=== PATIENT | male | born 1940 | race Caucasian/White ===

== ENCOUNTER 2017-10-18 01:12 | Observation (INO) | payer OTHER ==
[~2017-10-18] VITALS: Ht 172.7 cm; Wt 80.2 kg
[2017-10-18 01:25] LABS: BASOPHILS ABSOLUTE AUTO 0.02 K/mm3 (0.00-0.23); BASOPHILS PERCENT AUTO 0 % (0-2); EOSINOPHILS ABSOLUTE AUTO 0.11 K/mm3 (0.00-0.68); EOSINOPHILS PERCENT AUTO 1 % (0-6); Hematocrit 38.3 % (37.0-53.0); Hemoglobin 12.9 g/dL (13.5-17.5); IMMATURE GRAN ABSOLUTE AUTO 0.03 K/mm3 (0.00-0.10); IMMATURE GRAN PERCENT AUTO 0 % (0-1); LYMPHOCYTES ABSOLUTE AUTO 3.66 K/mm3 (0.84-5.20); LYMPHOCYTES PERCENT AUTO 33 % (21-46); MONOCYTES ABSOLUTE AUTO 0.86 K/mm3 (0.16-1.47); MONOCYTES PERCENT AUTO 8 % (4-13); Mean Corpuscular HGB 33.5 pg (26.0-34.0); Mean Corpuscular HGB Conc 33.7 g/dL (31.5-36.5); Mean Corpuscular Volume 100 fL (80-100); Mean Platelet Volume 10.4 fL (9.1-12.4); NEUTROPHILS ABSOLUTE AUTO 6.52 K/mm3 (1.96-9.15); NEUTROPHILS PERCENT AUTO 58 % (41-73); Platelet Count 128 K/mm3 (150-400); RDW Coefficient Variation 13.3 % (11.7-14.2); RDW Standard Deviation 49.1 fL (35.1-46.3); Red Blood Cell Count 3.85 M/mm3 (4.30-5.90)
[2017-10-18 01:48] LABS: Alanine Aminotransfer (ALT/SGP 38 U/L (12-78); Albumin, Blood 3.2 g/dL (3.4-5.0); Albumin/Globulin Ratio 1.1 (0.8-1.8); Alk Phos 108 U/L (50-136); Anion Gap 12 mmol/L (6-16); Aspartate Aminotrans (AST/SGOT 50 U/L (12-37); Bilirubin, Total 1.1 mg/dL (0.1-1.0); Blood Urea Nitrogen 15 mg/dL (8-24); Bun/Creatinine Ratio 18.7 (12.0-20.0); CO2, Blood 23 mmol/L (21-32); Calcium, Blood 8.3 mg/dL (8.5-10.1); Chloride, Blood 101 mmol/L (98-108); Globulin, Blood 2.8 g/dL (2.2-4.0); Glomerular Filtration Rate >60 (60-); Glucose, Blood 149 mg/dL (70-99); Potassium, Blood 3.4 mmol/L (3.5-5.5); Sodium, Blood 136 mmol/L (136-145)
[2017-10-18 01:57] LABS: Digoxin (Lanoxin) 0.42 ug/mL (0.80-2.00)
[2017-10-18] MEDS ORDERED: ISOMON20 PO ×2 (02:19)
[2017-10-18] MEDS ORDERED: LOSA25 PO (02:22)
[2017-10-18] MEDS ORDERED: METO50ER PO (02:22)
[2017-10-18] MEDS ORDERED: TAMS.4ER PO (02:23)
[2017-10-18] MEDS ORDERED: SPIR25 PO ×2 (02:23)
[2017-10-18] MEDS ORDERED: WARF2.5 PO (02:24)
[2017-10-18] MEDS ORDERED: TRAM50 PO (02:24)
[2017-10-18] MEDS ORDERED: TRAZ100 PO (02:24)
[2017-10-18] MEDS ORDERED: Acetaminophen-1 EAC1 PO (02:25)
[2017-10-18] MEDS ORDERED: CLOP75 PO (02:26)
[2017-10-18] MEDS ORDERED: ATOR80 PO (02:26)
[2017-10-18] MEDS ORDERED: LANOXIN125 MCG PO (02:26)
[2017-10-18 05:36] LABS: International Normalized Ratio 2.29; Prothrombin Time Results 24.4 Sec (9.7-11.5)
== END 2017-10-18 17:50 | disposition home or self-care (01) ==
LOC: ER 01:12 → ICUW 01:13
PROVIDERS: Emergency Medicine; Internal Medicine
DX: G93.41 Metabolic encephalopathy (principal); I95.9 Hypotension, unspecified; I25.10 Atherosclerotic heart disease of native coronary artery without angina pectoris; I25.2 Old myocardial infarction; I48.2 Chronic atrial fibrillation; I10 Essential (primary) hypertension; R79.89 Other specified abnormal findings of blood chemistry; E78.5 Hyperlipidemia, unspecified; J44.9 Chronic obstructive pulmonary disease, unspecified; Z86.010 Personal history of colon polyps; Z95.5 Presence of coronary angioplasty implant and graft; Z87.891 Personal history of nicotine dependence; Z88.8 Allergy status to other drugs, medicaments and biological substances; Z79.899 Other long term (current) drug therapy; Z79.01 Long term (current) use of anticoagulants
CPT/HCPCS: 36415; 70450; 71045; 80053; 80162; 83880; 84484; 85025; 85610; 93005; 93010; 96361; 96365; 96366; 96374; 99285; G0378; J2250; J3480; J7030; J7060

== ENCOUNTER 2017-10-20 02:54 | Observation (INO) | payer OTHER ==
[~2017-10-20] VITALS: Ht 165.1 cm; Wt 78.1 kg
[~2017-10-20 02:54] MED LIST: ATOR80 PO; Acetaminophen-1 EAC1 PO; CLOP75 PO; ISOMON20 PO; LANOXIN125 MCG PO; LOSA25 PO; METO50ER PO; SPIR25 PO; TAMS.4ER PO; TRAM50 PO; TRAZ100 PO; WARF2.5 PO
[2017-10-20 03:21] LABS: BASOPHILS ABSOLUTE AUTO 0.01 K/mm3 (0.00-0.23); BASOPHILS PERCENT AUTO 0 % (0-2); EOSINOPHILS ABSOLUTE AUTO 0.04 K/mm3 (0.00-0.68); EOSINOPHILS PERCENT AUTO 1 % (0-6); Hematocrit 41.2 % (37.0-53.0); IMMATURE GRAN ABSOLUTE AUTO 0.03 K/mm3 (0.00-0.10); IMMATURE GRAN PERCENT AUTO 0 % (0-1); LYMPHOCYTES ABSOLUTE AUTO 1.26 K/mm3 (0.84-5.20); LYMPHOCYTES PERCENT AUTO 15 % (21-46); MONOCYTES ABSOLUTE AUTO 0.73 K/mm3 (0.16-1.47); MONOCYTES PERCENT AUTO 9 % (4-13); Mean Corpuscular HGB 33.7 pg (26.0-34.0); Mean Corpuscular Volume 99 fL (80-100); NEUTROPHILS ABSOLUTE AUTO 6.37 K/mm3 (1.96-9.15); NEUTROPHILS PERCENT AUTO 76 % (41-73); Platelet Count 151 K/mm3 (150-400); RDW Coefficient Variation 13.2 % (11.7-14.2); RDW Standard Deviation 48.2 fL (35.1-46.3); Red Blood Cell Count 4.16 M/mm3 (4.30-5.90); White Blood Cell Count 8.44 K/mm3 (4.00-11.30)
[2017-10-20 03:44] LABS: Alanine Aminotransfer (ALT/SGP 57 U/L (12-78); Albumin, Blood 3.6 g/dL (3.4-5.0); Albumin/Globulin Ratio 1.1 (0.8-1.8); Alk Phos 126 U/L (50-136); Anion Gap 8 mmol/L (6-16); Aspartate Aminotrans (AST/SGOT 69 U/L (12-37); Blood Urea Nitrogen 12 mg/dL (8-24); Bun/Creatinine Ratio 16.1 (12.0-20.0); CO2, Blood 24 mmol/L (21-32); Calcium, Blood 9.1 mg/dL (8.5-10.1); Chloride, Blood 105 mmol/L (98-108); Creatinine, Blood 0.74 mg/dL (0.60-1.20); Globulin, Blood 3.3 g/dL (2.2-4.0); Glomerular Filtration Rate >60 (60-); Glucose, Blood 115 mg/dL (70-99); Potassium, Blood 4.1 mmol/L (3.5-5.5); Sodium, Blood 137 mmol/L (136-145); Total Protein, Blood 6.9 g/dL (6.4-8.2)
[2017-10-20 03:47] LABS: International Normalized Ratio 1.99; Prothrombin Time Results 21.1 Sec (9.7-11.5)
[2017-10-20 05:00] LABS: Digoxin (Lanoxin) 0.35 ug/mL (0.80-2.00)
[2017-10-20 05:02] LABS: Source, Urine Clean Catch
[2017-10-20 05:10] LABS: Bilirubin, Urine Neg (Neg); Blood, Urine Neg (Neg); Glucose Qualitative, Urine Neg (Neg); Ketones, Urine Neg (Neg); Leukocyte Esterase, Urine Neg (Neg); Nitrite, Urine Neg (Neg); Protein, Urine Neg (Neg); Specific Gravity, Urine 1.005 (1.003-1.022); Urobilinogen, Urine NORM (Normal)
[2017-10-20 05:18] LABS: Appearance, Urine Clear (Clear); Color, Urine Yellow (P-Yellow)
[2017-10-20] MEDS ORDERED: WARF5 PO ×2 (09:24)
[2017-10-20] MEDS ORDERED: ACET325 PO ×2 (11:08)
[2017-10-20] MEDS ORDERED: SPIR25 PO ×2 (11:09)
[2017-10-20] MEDS ORDERED: FURO40 PO ×2 (11:09)
== END 2017-10-20 11:50 | disposition home or self-care (01) ==
LOC: ER 02:54 → PCU 02:55 → ER 04:00 → PCU 04:00
PROVIDERS: Emergency Medicine; Internal Medicine
DX: I11.0 Hypertensive heart disease with heart failure (principal); I50.9 Heart failure, unspecified; I48.91 Unspecified atrial fibrillation; R60.0 Localized edema; I25.10 Atherosclerotic heart disease of native coronary artery without angina pectoris; I25.2 Old myocardial infarction; E78.5 Hyperlipidemia, unspecified; J44.9 Chronic obstructive pulmonary disease, unspecified; Z79.01 Long term (current) use of anticoagulants; Z79.899 Other long term (current) drug therapy; Z98.890 Other specified postprocedural states; Z87.891 Personal history of nicotine dependence
CPT/HCPCS: 36415; 71046; 74018; 80053; 80162; 81003; 83690; 83880; 84484; 85025; 85610; 93005; 93010; 93970; 96374; 99285; G0378; J1160; J1940